=== PATIENT | male | born 1950 | race Caucasian/White ===

== ENCOUNTER 2017-01-02 04:13 | Inpatient (IN) | payer OTHER ==
[~2017-01-02] VITALS: Ht 170.2 cm; Wt 78.5 kg
[~2017-01-02 04:13] MED LIST: LISINOPRIL20 M1 PO
--- NOTE | 2017-01-02 11:59 | Admission Core Measures ---
Admission Meds I reviewed the following Meds: Current Medications Sig/Jarek Start time Last Medication Dose Stop Time Status Admin Acetaminophen 975 MG ONCE 01/02 0000 NR (Tylenol) 01/02 2359 Cefazolin Sodium 2,000 MG ONCE 01/02 NR (Kefzol-Ancef Inj) 01/02 2359 Lisinopril 20 MG DAILY 01/03 1000 UNVr (Prinivil) Oxycodone HCl 10 MG ONCE 01/02 0000 NR (Roxicodone) 01/02 2359 Acute Coronary Syndrome Inclusion Criteria ACS Diagnosis No Inpatient Core Measures LDL Reminder: If No, please order W/I first 24hr of stay Congestive Heart Failure Inclusion Criteria CHF Diagnosis No Cerebrovascular accident Inclusion Criteria CVA/TIA Diagnosis No Inpatient Core Measures Bedside Swallow Eval Reminder: If BSE failed, place ST order Antithrombotic Reminder: Order Antithrombotic Medication by end of day 2 Antithrombotic Reminder: Document Reason Antithrombotic Not ordered by end of day 2 AFIB/Flutter Reminder: If Present, add to problem list AFIB/Flutter Reminder: Order Anticoag Medication for pts with AFIB/Flutter Atherosclerosis Reminder: If Present, add to problem list LDL Reminder: If No, please order W/I first 24hr of stay PT Order Reminder: If No, please order Venous thromboembolism Inpatient Core Measures VTE Risk Factors: Age > 40, Surgery [facility] prophylaxis d/t No contraindications No VTE Pharm Prophylaxis d/t No contraindications Inclusion Criteria - Per Current guidelines, there needs to be overlap - treatment for the first 5 days of Warfarin therapy. - Parenteral Anticoagulation (IV or SC) needs to be - given along with Warfarin therapy. VTE Diagnosis No VTE Type NONE VTE Confirmed by (Test) NONE Problem List As ranked by this Provider includes Assessment & Plan 1. Status post total hip replacement, right HOME MEDS Home Med List Lisinopril 20 MG TABLET 1 TAB PO DAILY HTN (Reported)
--- NOTE | 2017-01-02 12:01 | Discharge Summary ---
Visit Information Visit Dates Admission Date: 01/02/17 Discharge Date: 01/03/17 Hospital Course Course Attending Physician: QUAN HEALY MD Primary Care Physician: MIKE TSANG MD Hospital Course: Patient admitted to floor following procedure below. Patient ambulated with PT upon arrival to the floor. Patient continued to progress well. Upon discharge patient is afebrile, tolerating diet, pain controlled, ambulating well with rolling walker and PT. Complications: None Allergies: Coded Allergies: NO KNOWN ALLERGIES (12/30/16) Significant Procedures: 01/02/17 right total hip arthroplasty Disposition Summary Disposition Principal Diagnosis: Right hip pain Additional Diagnosis: None Discharge Disposition: home health services Discharge Instructions General Discharge Information Code Status: Full Code Patient's Diet: Resume normal diet Patient's Activity: Weightbearing as tolerated Daily physical therapy Follow-Up Instructions/Appts: Call Dr. HEALY'S office to schedule follow-up appointment Medications at Discharge Discharge Medications: Continue taking these medications: Lisinopril (Lisinopril) 20 MG TABLET 1 Tablet ORAL DAILY Comments: Last Taken:01/03/17 Time:1000 Start taking the following new medications: Hydromorphone HCl (Dilaudid) 4 MG TABLET 1-2 Tablet ORAL Q4-6P as needed for PAIN Qty = 36 No Refills Comments: Last Taken:01/03/17 Time:1000 Morphine Sulfate (Morphine Sulfate ER) 15 MG TABLET.ER 1 Tablet ORAL 2 x Daily as needed Qty = 5 No Refills Comments: Last Taken:NOT GIVEN IN HOSPITAL Time: Aspirin (Aspirin*) 325 MG TABLET 1 Tablet ORAL TWICE DAILY Qty = 60 No Refills Comments: Last Taken:01/03/17 Time:1000 Docusate Sodium (Colace) 100 MG CAPSULE 1 Capsule ORAL TWICE DAILY as needed for CONSTIPATION Qty = 30 No Refills Comments: Last Taken:01/03/17 Time:1000 Polyethylene Glycol 3350 (Miralax) 17 GRAM POWD.PACK 1 Packet ORAL DAILY as needed for CONSTIPATION Qty = 14 No Refills Instructions: dissolve in water Comments: Last Taken:NOT GIVEN IN HOSPITAL Time: Copies To: TRINH BACH,MIKE Dejesus
[2017-01-02] MEDS ORDERED: MIRALAX17 G1 PO (12:03)
[2017-01-02] MEDS ORDERED: COLACE100 M1 PO (12:03)
[2017-01-02] MEDS ORDERED: DILAUDID4 M1 PO (12:03)
[2017-01-02] MEDS ORDERED: MORPHINE SULFAT15 M3 PO (12:03)
[2017-01-02] MEDS ORDERED: ASPIRIN325 M2 PO (12:03)
--- NOTE | 2017-01-02 12:04 | Patient Discharge Instructions ---
Discharge Instructions General Discharge Information You were seen/treated for: Right hip pain You had these procedures: 01/02/2017 right total hip arthroplasty Watch for these problems: Redness, swelling, fever, signs of infection. Uncontrolled pain, Excessive bleeding. Decreased range of motion or unable to bear weight. Chest pain, shortness of breath. Do not soak the wound: Yes No bath, but you may shower: Yes Other wound care: Daily dry dressing changes or as needed Diet Continue normal diet: Yes Activity Activity Self Limited: Yes Activity Limited to: Weight bear as tolerated Additional ACTIVITY Info: Daily physical therapy Acute Coronary Syndrome Inclusion Criteria At DC or during hospital stay patient has or had the following: ACS DIAGNOSIS No Discharge Core Measures Meds if any: Prescribed or Continued at Discharge Meds if any: NOT Prescribed or Continued at Discharge Congestive Heart Failure Inclusion Criteria At DC or during hospital stay patient has or had the following: CHF DIAGNOSIS No Discharge Core Measures Meds if any: Prescribed or Continued at Discharge Meds if any: NOT Prescribed or Continued at Discharge Cerebrovascular accident Inclusion Criteria At DC or during hospital stay patient has or had the following: CVA/TIA Diagnosis No Discharge Core Measures Meds if any: Prescribed or Continued at Discharge Meds if any: NOT Prescribed or Continued at Discharge Venous thromboembolism Inclusion Criteria VTE Diagnosis No VTE Type NONE VTE Confirmed by (Test) NONE Discharge Core Measures - Per Current guidelines, there needs to be overlap - treatment for the first 5 days of Warfarin therapy. - If discharged on Warfarin prior to 5 days of - overlap therapy, the patient will need to be - assessed for post discharge needs including - *Post discharge parental anticoagulation - *Warfarin and/or parental anticoagulation education - *Follow up date to check INR post discharge At least 5 days overlap therapy as Inpatient No Meds if any: Prescribed or Continued at Discharge Note: Overlap Therapy is Warfarin and Anticoagulant Meds if any: NOT Prescribed or Continued at Discharge
--- NOTE | 2017-01-02 15:37 | RADIOLOGY REPORT ---
EXAMINATION: XR HIP, RIGHT CLINICAL INFORMATION: Status post right hip replacement. COMPARISON: None TECHNIQUE: Two views of the right hip. FINDINGS: There is a right hip prosthesis. Both the acetabular and femoral components appear well seated. There is no fracture or evidence of hardware failure. IMPRESSION: Status post right hip replacement. Orthopedic hardware appears well seated. No evidence of hardware failure.
[2017-01-02 16:00] VITALS: BP 112/68
--- NOTE | 2017-01-02 16:42 | PN- Orthopedic ---
Subjective Subjective: Post op check Awake, alert post op Has already ambulated with PT without difficulty. Has not cleared stairs yet. Has not voided yet. No nausea, pain tolerable Objective Vital Signs and I&Os Vital Signs Date Time Temp Pulse Resp B/P Pulse O2 O2 Flow FiO2 Ox Delivery Rate 01/02 1600 97.5 70 16 112/68 92 Room Air Physical Exam: afebrile, vss General: alert and oriented times three Chest: clear anteriorly bilaterally, RRR Abd: soft, good bs Ext: warm, no edema, positive sensate, no calf tenderness Wound: dressed, dry Current Medications: Current Medications Sig/Jarek Start time Last Medication Dose Route Stop Time Status Admin Acetaminophen 650 MG Q4P PRN 01/02 1645 UNVr PO Acetaminophen 975 MG ONCE 01/02 0000 DC PO 01/02 2359 Aspirin 325 MG BID 01/02 2200 UNVr PO Cefazolin Sodium 2 GM IQ8 01/02 1600 UNVr N/A 1 UNIT IV 01/03 0029 Cefazolin Sodium 2,000 MG ONCE 01/02 0000 DC IV 01/02 2359 Dextrose/Sodium 1,000 ML .[id number] 01/02 1645 UNVr Chloride IV Docusate Sodium 100 MG DAILY 01/03 1000 UNVr PO Hydromorphone HCl 2 MG Q4P PRN 01/02 1645 UNVr PO Hydromorphone HCl 4 MG Q4P PRN 01/02 1645 UNVr PO Lisinopril 20 MG DAILY 01/03 1000 AC PO Morphine Sulfate 2 MG Q2P PRN 01/02 1645 UNVr IV Oxycodone HCl 10 MG .STK-MED ONE 01/02 1057 DC PO 01/02 1058 Oxycodone HCl 10 MG ONCE 01/02 0000 DC PO 01/02 2359 Polyethylene Glycol 17 GM DAILY NEEDED PRN 01/02 1645 UNVr PO Assessment/Plan Assessment/Plan 66 yo male s/p R THR pain mgmt asa 325mg po bid for dvt ppx abx for 24 hrs post op PT = WBAT await PT clearance for discharge - likely tomorrow Core Measures/Miscellaneous Venous Thromboembolism VTE Risk Factors: Age > 40, Surgery VTE Contraindications: No Contraindications VTE Diagnosis: No VTE Type: NONE VTE Confirmed by (Test): NONE Beta Molina Is Beta Molina a Home Med? No Antibiotics Is Patient on Antibiotics? Yes If Yes: prophylaxis (24 hrs post op)
--- NOTE | 2017-01-02 17:21 | Operative Report ---
See Addendum Operative/Inv Procedure Report Surgery Date: 01/02/17 Name of Procedure: Right total hip replacement Pre-Operative Diagnosis: Primary right hip DJD Post-Operative Diagnosis: Same Estimated Blood Loss: 300 Surgeon/Embedded Systems Developer: MONET BACH,QUAN Mcdonough Anesthesia: block Operative/Procedure Note Note: Description of Procedure: The patient was taken to the operating room and positively identified. After induction of spinal anesthesia and administration of appropriate pre-operative antibiotics, the patient was positioned supine on the operating room table and all bony prominences were well padded. After performing a surgical timeout, the right lower extremity was prepped and draped in the usual sterile fashion. A direct anterior approach was made to the right hip. The incision was carried sharply through superficial soft tissues to the level of the fascia. Meticulous hemostasis was maintained with Bovie electocautery. The fascia over the tensor fascia hudson muscle was opened sharply and the interval between the TFL and the sartorius was entered bluntly taking care to stay lateral to the lateral femoral cutaneous nerve. Retractors were placed around the femoral neck and the pericapsular fat was identified. The ascending branches of the lateral femoral circumflex vessels were identified and carefully coagulated. The pericapsular fat and anterior capsule were then resected. A napkin ring osteotomy was performed and the femoral head was removed without difficulty. Attention was then turned to the acetabulum. After appropriate placement of retractors, the acetabulum was exposed. Soft tissue was cleaned from the acetabular margin and notch. Overhanging osteophytes were removed and the teardrop was exposed. The acetabulum was then sequentially reamed to accept a 56 mm Yoselin Trident Tritanium hemispherical shell. This was impacted into place in the appropriate position and several screws were used for supplemental fixation. It was then fitted with a 32 mm Trident X3 zero degree polyethylene insert. Attention was then turned to the femur. After performing the appropriate ligament releases, the proximal femur was exposed. It was then sequentially broached to accept a size [size] Yoselin accolade 2 stem. This was trialed for leg length and stability. The trial component was removed and the final component was impacted into place. The trunnion was carefully cleaned and fit with a 32 mm, -4 Biolox delta ceramic femoral head. The hip was reduced and put through a full range of motion and found to be stable. The articular space was then irrigated with sterile saline. The periarticular soft tissues were infilitrated with Marcaine. The fascial layer was closed with interrupted #1 vicryl suture and the skin was re-approximated with interrupted 2 -0 vicryl. The skin was closed with a running 3-0 V-Lock suture. Steri-strips and a sterile dressing were applied. The patient was awakened and taken to the recovery room in satisfactory condition.
[2017-01-02 17:52] VITALS: BP 120/70
[2017-01-02 20:00] VITALS: BP 120/60
[2017-01-02 20:03] VITALS: BP 120/80
[2017-01-02 21:55] VITALS: BP 120/68
[2017-01-03 02:00] VITALS: BP 114/60
[2017-01-03 06:22] VITALS: BP 112/60
[2017-01-03 07:56] LABS: ABSOLUTE BASOPHIL COUNT 0 /CUMM (0.0-0.2); ABSOLUTE EOSINOPHIL COUNT 0 /CUMM (0.0-0.7); ABSOLUTE GRANULOCYTE CT 11.7 /CUMM (1.4-6.5); ABSOLUTE LYMPH COUNT 1.8 /CUMM (1.2-3.4); ABSOLUTE MONOCYTE COUNT 1.1 /CUMM (0.10-0.60); BASOPHIL % 0.3 % (0.0-2.0); EOSINOPHIL % 0 % (0-5); HEMATOCRIT 34.3 % (42-52); MEAN CORPUSCULAR HGB 29.9 PG (27.0-31.0); MEAN CORPUSCULAR HGB CONC 33.2 G/DL (33.0-37.0); MEAN PLATELET VOLUME 7.1 FL (7.4-10.4); PLATELET COUNT 270 /CUMM (130-400); RBC DISTRIBUTION WIDTH 13.5 % (11.5-14.5); RED BLOOD CELL CT 3.81 /CUMM (4.70-6.10); WHITE BLOOD CELL COUNT 14.7 /CUMM (4.8-10.8)
--- NOTE | 2017-01-03 08:28 | PN- Orthopedic ---
Subjective Subjective: No acute overnight events reported. Patient reporting that pain is well controlled at present, only noting some tightness associated with the surgical site. Denies chest pain, shortness of breath and difficulty breathing. Denies nausea and vomitting, is tolerating po. Objective Vital Signs and I&Os Vital Signs Date Time Temp Pulse Resp B/P Pulse O2 O2 Flow FiO2 Ox Delivery Rate 01/03 0622 98.2 82 20 112/60 92 Room Air 01/03 0200 98.5 75 20 114/60 94 Room Air 01/03 0200 98.5 75 20 114/60 94 Room Air 01/02 2155 98.0 68 20 120/68 97 Room Air 01/02 2155 98.0 68 20 120/68 97 01/02 2003 98.2 80 20 120/80 95 01/03 2000 98.2 80 20 120/60 95 01/02 1752 98.7 80 20 120/70 96 01/02 1600 97.5 70 16 112/68 92 Room Air Intake & Output 01/03 1600 01/03 0800 01/03 0000 01/02 1600 01/02 0800 01/02 0000 Intake Total 650 975 Output Total 400 600 Balance 250 375 Intake, IV 600 525 Intake, Oral 50 450 Number 0 Bowel Movements Output, Urine 400 600 Patient 173 lb Weight Physical Exam: General: Alert and oriented x3, no acute distress Cardiac: RRR, s1s2 Pulm: CTA bialterally Abdomen: Soft, non-tender Extremiteis: MOves all extremities, distal sensation intact. Motor 5/5 in plantar and dorsi flexion. Skin warm and well perfused. DP pulses palpable bilaterally. Bilateral calves soft and non-tender Surgical site: Right hip, dressing dry and intact, thigh compartment soft Assessment/Plan Assessment/Plan This is a 66 year old male, POD 1, s/p right thr -d/c iv fluids -OOB with pt, stairs, discharge recommendations -Continue current pain regimen -ASA 325 bid for dvt ppx -Bowel regimen to include colace and miralax -Possible dc to home with services today -Will d/w attending Core Measures/Miscellaneous Venous Thromboembolism VTE Risk Factors: Age > 40, Surgery VTE Contraindications: No Contraindications VTE Diagnosis: No VTE Type: NONE VTE Confirmed by (Test): NONE Beta Molina Is Beta Molina a Home Med? No Antibiotics Is Patient on Antibiotics? Yes If Yes: prophylaxis (24 hrs post op)
[2017-01-03 10:11] VITALS: BP 110/70
== END 2017-01-03 13:06 | disposition home health service (06) | DRG 470 ==
LOC: ENRESERVDT → ENRESERVTM → ENPENDDIS 04:13 → SDA 04:13 → CMPBEDREQ 14:54 → 2NA 16:01
PROVIDERS: Physician Assistant Surgical; ADMIT Orthopaedic Surgery
PROC: 0SR904A Replacement of Right Hip Joint with Ceramic on Polyethylene Synthetic Substitute, Uncemented, Open Approach (ICD-10-PCS; principal; 2017-01-02)
DX: M16.11 Unilateral primary osteoarthritis, right hip (principal); I10 Essential (primary) hypertension
CPT/HCPCS: 2NAP; 73502-RT; 82436; 88304; 97110-GO; 97116-GO; 97161-GP; 97530-GO; J0690; J0735; J7042